=== PATIENT | female | born 1990 | race American Indian/Alaskan Native ===

== ENCOUNTER 2018-05-03 02:11 | Emergency (ER) | payer OTHER ==
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
[2018-05-03 02:27] VITALS: O2SAT 96
[2018-05-03] MEDS ORDERED: Tdap Vaccine 0.5 ml Vial (10-64 yrs) IM ONE ×2 (02:27→02:49)
[2018-05-03 03:01] LABS: BASO # 0.1 K/uL (0.0-0.2); EOS % 0.2 % (0.0-4.0)
[2018-05-03 03:07] LABS: BASO % 0.5 % (0.0-2.0); HEMOGLOBIN 13.1 g/dL (11.0-16.0); LYMPH # 1.3 K/uL (1.0-4.3); LYMPH % 10.1 % (20.0-40.0); MEAN CELL VOLUME 88.8 fL (81.0-99.0); MEAN CORPUSCULAR HEMOGLOBIN 28.5 pg (27.0-31.0); MEAN CORPUSCULAR HGB CONC 32.2 g/dL (33.0-37.0); MEAN PLATELET VOLUME 7.9 fL (7.2-11.7); MONO # 0.4 K/uL (0.0-0.8); MONO % 3.1 % (0.0-10.0); NEUT # 10.8 K/uL (1.8-7.0); NEUT % 86.1 % (50.0-75.0); RBC 4.59 Mil/uL (3.80-5.20); RED CELL DISTRIBUTION WIDTH 14.9 % (11.5-14.5); WHITE BLOOD COUNT 12.5 K/uL (4.8-10.8)
[2018-05-03 03:13] LABS: BLOOD UREA NITROGEN 18 mg/dL (7-17); CALCIUM 9.3 mg/dl (8.6-10.4); GFR NON-AFRICAN AMERICAN > 60
[2018-05-03 03:14] LABS: ALB/GLOB RATIO 1.2 (1.0-2.1); ALBUMIN 4.4 g/dL (3.5-5.0); ALT/SGPT < 6 U/L (9-52); AST/SGOT 43 U/L (14-36)
[2018-05-03 04:29] VITALS: BP 115/52; PULSE 88; RESP 18; TEMP 98.5
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
== END 2018-05-03 05:07 | disposition home or self-care (01) ==
LOC: C.ER 02:11
DX: S02.2XXA Fracture of nasal bones, initial encounter for closed fracture (principal); S01.21XA Laceration without foreign body of nose, initial encounter; Y04.0XXA Assault by unarmed brawl or fight, initial encounter